=== PATIENT | male | born 1970 | race Caucasian/White ===

== ENCOUNTER 2017-12-25 12:54 | Day surgery (SDC) | payer OTHER, SELFPAY ==
--- NOTE | 2017-12-25 | PATH_ITS ---
[facility] Accession Number: [id number] . 01 Material submitted: . PART A: POLYP AT CECUM PART B: PERINEAL CYST . 02 Diagnosis: A. Cecal Polyp: Tubular adenoma. . B. Perineal Cyst: Most consistent with epidermoid cyst with evidence of rupture. Negative for dysplasia or malignancy. MRV/12/30/2017 . 02 Comment: As part of routine clinical quality rn, Dr. Ruiz has reviewed part B of this case and agrees with the above interpretation. . 02 Electronically signed: . Neri Wesley MD, PhD, Pathologist NPI- [id number] . 01 Gross description: . Part A: POLYP AT CECUM: Received in formalin are multiple fragment(s) of harvey, soft tissue measuring 1.2 x 0.3 x 0.3 cm in aggregate submitted entirely in 1 cassette(s) Part B: PERINEAL CYST: Received in formalin is 1 fragment(s) of harvey, soft tissue measuring 0.5 x 0.4 x 0.4 cm which is inked, bisected and submitted entirely in 1 cassette(s) /CKI /CKI . 02 Pathologist provided ICD-10: D12.0, L72.0 . 02 CPT . 187634, [id number] Performed at: 01 [facility] [address], [place], [place] [id number] MD Sher Cho MD Phone: [phone] Performed at: [address] [facility] [address] [place], [place] [id number] MD Samir Nair MD Phone: [phone]
[2017-12-25 13:48] VITALS: BP 116/79; PULSE 68; RESP 16; TEMP 36.4; O2SAT 97; BMI 27.9
[2017-12-25] MEDS: LACTATED RINGERS 1,000 ML 42 ML IV (13:54)
--- NOTE | 2017-12-25 14:49 | PM.PREOP ---
Pre-operative Note Interval Note Pre-op Check: Yes History & Physical Reviewed by Physician Changes: No
[2017-12-25] MEDS: LIDOCAINE 1% W/EPI INJ 20 ML INJ (15:54)
[2017-12-25 16:05] VITALS: BP 135/88; PULSE 76; RESP 15; TEMP 36.1; O2SAT 94
--- NOTE | 2017-12-25 16:05 | P.OP_ITS ---
Operative Date/Time/Diagnoses Date of procedure: 12/25/17 Time of procedure: 16:05 Pre-op diagnosis: Screening for neoplasms of the colon Perineal lesion Post-op diagnosis: same Procedure & Clinicians Procedure: Colonoscopy to the cecum with polypectomy x2 Excision of a perineal cyst Same procedure as scheduled: Yes Indications: No prior colonoscopy Surgeon: Delisa Terrazas Click Yes if Unassisted: Yes Anesthesia Type: General (Kei) Operative Notes Findings: 1. Two sessile polyps. One within the cecum and 1 just distal to the cecum. Both removed and retained for pathology 2. Minimal diverticulosis limited to the sigmoid region 3. No AV malformations 4. Adequate prep 5. Perineal lesion consistent with inclusion cyst 6. 3 x 3 cm problem with this lesion on the caudal surface of the penis Closure Type: primary Specimen(s): none sent (1. Colon polyp x2, 2. Perineal lesion) Estimated Blood Loss (mL): 2 Procedure in detail: After obtaining informed consent, the patient brought to the operating room placed in supine position on the operating table. Following successful induction of general endotracheal anesthesia, the legs were placed in Yadiel stirrups and padded appropriately. A time out was held per [facility] protocol. A digital rectal examination was performed and did not reveal any masses or obstructing lesions. The colonoscope was gently passed into the patient's anus and the entire colon navigated to the level of the cecum with minimal difficulty. Once in the cecum, a polyp in the floor of the cecum that was approximately 3 mm. This was removed with cold biopsy forceps and retained for pathology. The scope was withdrawn being sure to go before and beyond all mucosal folds and prominences and get an excellent examination. Just distal to the cecum, approximately 5 cm, a 2nd sessile polyp-approximately 5 mm in greatest length-was identified. Again this is removed with biopsy forceps and retained for pathology. Other findings are noted above. At the level of the rectal vault, the scope was retroflexed and the internal anal canal was examined. The scope was straightened and air aspirated from the colon. The instrument was removed from the patient's body and the procedure was concluded. We continued with prep and drape of the perineal region in the standard surgical fashion. Upon draping this area, we noted a lesion on the caudal surface of the penis. 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 The wound was checked for hemostasis and closed in 2 layers with Vicryl and nylon suture. All sponge, needle, and instrument counts were correct at the conclusion of the case. The patient was allowed to awaken from sedation without difficulty and taken to the post-anesthesia care unit in good condition. Complications: none Condition: stable Disposition: PACU Plan for aftercare: 1. Discharge to home 2. Follow up in 10 days for suture removal.
[2017-12-25 16:10] VITALS: BP 114/83; PULSE 80; RESP 15
[2017-12-25] MEDS: OXYCODONE/ACETAMINOPHEN 5/325 TABLET 1 TAB PO (16:48)
[2017-12-25 17:28] VITALS: BP 118/79; PULSE 73; RESP 16; TEMP 36.6; O2SAT 99
--- NOTE | 2017-12-25 17:36 | SUR.PHASEII ---
1615 pt resting , taking fluids , taking crackers
--- NOTE | 2017-12-25 17:38 | SUR.PHASEII ---
8537 patient co of pain 12/10 requests pain med, spoke to dr corona and pain med ordered ,
--- NOTE | 2017-12-25 17:40 | SUR.PHASEII ---
1715 pt dressed and ready to go , vss, pain 6/10 , steady on feet
== END 2017-12-25 17:23 | disposition home or self-care (01) ==
PROVIDERS: PCP Family Medicine; Visit Provider Surgery
PROC: 0DJD8ZZ Inspection of Lower Intestinal Tract, Via Natural or Artificial Opening Endoscopic (ICD-10-PCS; CPT 45378; principal; 2017-12-25 14:15)
PROC: (CPT 45990; 2017-12-25 14:15)
DX: Z12.11 Encounter for screening for malignant neoplasm of colon (principal); K57.30 Diverticulosis of large intestine without perforation or abscess without bleeding; D12.0 Benign neoplasm of cecum; L72.0 Epidermal cyst
CPT/HCPCS: 54060; 45380; J2250; J2405; J2704; J3010